=== PATIENT | female | born 1980 | race Caucasian/White ===

== ENCOUNTER 2016-07-15 01:36 | Inpatient (IN) | payer OTHER ==
[~2016-07-15] VITALS: Ht 160 cm; Wt 70.4 kg
[2016-07-15] VITALS (13 sets, daily range): BP systolic 84–131; BP diastolic 51–87
[~2016-07-15 01:36] MED LIST: MEDR150D3 IM
[2016-07-15] MEDS ORDERED: 0.9 % SODIUM CHLORIDE 10 ML DISP.SYRIN. IV PRN (01:45)
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
--- NOTE | 2016-07-15 01:58 | EKG ---
[address] [address] Test Date: 2016-07-15 Test Time: 01:58:49 Pat Name: ODILON GARZA Department: Room: Gender: F Structural Steel Fitter: SHANTANU : 1980 Requested By: WILLIAM CROW Order Number: [id number] Reading MD: Rome Champagne Measurements Intervals [place] Rate: 79 P: 51 AL: 128 QRS: 68 QRSD: 78 T: 36 QT: 374 QTc: 430 Interpretive Statements SINUS RHYTHM Electronically Signed On 07-17-2016 9:46:38 CDT by Rome Champagne
[2016-07-15] MEDS ORDERED: IV NORMAL SALINE 1,000ML 1,000 ML IV SCH (02:00)
[2016-07-15] MEDS ORDERED: LORazepam 2 MG/ML VIAL IV ONE (02:00)
[2016-07-15] MEDS ORDERED: HALOPERIDOL LACT 5 MG/ML VIAL. IVP ONE (02:00)
[2016-07-15 02:31] LABS: BASO % 0 % (0-3); EOS % 0 % (0-3); HEMATOCRIT 37.7 % (36.0-47.0); HEMOGLOBIN 12.9 g/dL (12.0-15.5); LYMPH # 2.2 x10^3/uL (1.0-4.8); LYMPH % 21 % (24-48); MEAN CORPUSCULAR HEMOGLOBIN 33 pg (25-35); MEAN CORPUSCULAR HGB CONC 34 g/dL (31-37); MEAN CORPUSCULAR VOLUME 96 fL (79-100); MONO # 0.5 x10^3/uL (0.0-1.1); MONO % 5 % (0-9); NEUT # 7.7 x10^3uL (1.8-7.7); NEUT % 74 % (31-73); PLATELET COUNT 180 x10^3/uL (140-400); RED BLOOD COUNT 3.94 x10^6/uL (3.50-5.40); RED CELL DISTRIBUTION WIDTH 14.1 % (11.5-14.5); WHITE BLOOD COUNT 10.4 x10^3/uL (4.0-11.0)
[2016-07-15 02:41] LABS: ALBUMIN 3.4 g/dL (3.4-5.0); CALCIUM 8.9 mg/dL (8.5-10.1); CREATININE 0.8 mg/dL (0.6-1.0); DIRECT BILIRUBIN 0.2 mg/dL (0.0-0.2); GFR 82.1; POTASSIUM 3.3 mmol/L (3.5-5.1); TOTAL BILIRUBIN 0.7 mg/dL (0.2-1.0); TOTAL PROTEIN 6.9 g/dL (6.4-8.2)
[2016-07-15 02:50] LABS: ACETAMIN < 2 mcg/mL (10-30); ETHANOL < 10 mg/dL (0-10); SALIC 2.1 mg/dL (2.8-20.0)
[2016-07-15 03:37] LABS: BILIRUBIN,URINE NEG (NEG); CLARITY,URINE CLEAR; COLOR,URINE YELLOW; GLUCOSE,URINE NEG (NEG)
[2016-07-15 03:38] LABS: BACTERIA,URINE FEW /HPF (0-FEW); NITRITE,URINE NEG (NEG); RBC,URINE OCC /HPF (0-2); SQUAMOUS EPITHELIAL CELL,UR MOD /LPF; UROBILINOGEN,URINE 0.2 mg/dL (0.2 mg/dL); WBC,URINE OCC /HPF (0-4)
[2016-07-15 03:39] LABS: BARBITURATES NEG (NEG); BENZODIAZEPINES POS (NEG); CANNABINOIDS NEG (NEG); COCAINE NEG (NEG); METHADONE NEG (NEG); OPIATES NEG (NEG); PHENCYCLIDINE NEG (NEG)
[2016-07-15 03:41] LABS: AMPHETAMINE/METHAMPHETAMINE NEG (NEG)
[2016-07-15] MEDS ORDERED: ONDANSETRON PF 4 MG/2 ML VIAL. IV PRN (03:45)
[2016-07-15] MEDS ORDERED: ACETAMINOPHEN 325 MG TABLET PO PRN (03:45)
--- NOTE | 2016-07-15 04:01 | ACF ---
Admission Criteria Forms MENTAL STATUS CHANGE Clinical Indications for Inpatient Care (Place 'X' for any and all applicable criteria): Ongoing inpatient care may be needed for 1 or more of the following(1)(2)(3)(5)( 6): [X]I. Suspected serious etiology (eg, medical disorder, TECHNICAL CONSULTANT event) of altered mental status [ ]II. Danger to self or others not manageable at lower level of care [ ]III. Grave disability (eg, inability to perform self care necessary at lower level of care) [ ]IV. Agitation or inappropriate behavior interfering with care for primary condition (eg, attempting to discontinue lines or drains prematurely, unable to cooperate with respiratory care) [ ]V. Delirium [A] [D][E] as described by 1 or more of the following(26): [ ]a) Delirium due to alcohol or sedative [F] withdrawal [ ]b) Delirium of uncertain etiology that has not responded to appropriate empiric treatment [ ]c) Delirium that prevents performance of a life-sustaining function (eg, feeding or hydrating oneself) [ ]. General contraindications and/or Inappropriate clinical situations for Observational Care in patients with Mental Status Change, when ANY ONE of the following is required: [ ]a) Prediction of prolongation of LOS based on ANY ONE of the following may be considered as a contraindication for observational care 2, 3, 4, 5, 6, 7, 8, 9, 10, 11 [ ]i) Age > 65 yrs. [ ]ii) Patient arriving by ambulance [ ]iii) Patient with high acuity [ ]iv) Patient requiring vital sign monitoring [ ]v) Patient on IV medication [ ]b) Systolic blood pressures greater than or equal to 180mmHg 3, 12 [ ]c) Patient with altered mental status including delirium and other alteration of consciousness, (3) [ ]d) Patient whose discharge disposition will be to a fci home or rehabilitation home should not be managed in Emergency Department Observation Unit. CMS rule requires 3 days hospital stay before such placement.3,13 [ ]e) Patient with failure to thrive due to broad array of etiologies 3,16,17 [ ]f) Inability to ambulate 3,14 Extended stay beyond goal length of stay for the primary condition may be needed until ALL of the following are present(3)(5): [ ]a) Underlying medical etiology of mental status change is absent, or has been established and adequately treated [ ]b) Danger to self or others is absent or manageable at lower level of care. [ ]c) Behavior crisis management, including physical or chemical restraints, is not required or available at lower level of car [ ]d) Substance or alcohol withdrawal is absent or manageable at lower level of care. [ ]e) Behavioral symptoms (eg, agitation, somnolence, inappropriate behavior) are absent, or are manageable at lower level of care. The original [facility] content created by [facility] has been revised. The portions of the content which have been revised are identified through the use of italic text or in bold, and [facility] has neither reviewed nor approved the modified material. All other unmodified content is copyright [facility]. Please see references footnoted in the original [facility] edition 2016 Admission Criteria Met?: Yes DIANNA TOWNSEND July 15, 2016 04:01
[2016-07-15] MEDS ORDERED: TRAZ-90 PO (04:26)
--- NOTE | 2016-07-15 07:43 | RAD ---
EXAM: Left hand, 3 views. HISTORY: Swelling. COMPARISON: None. FINDINGS: Frontal, lateral and oblique views of the left hand are obtained. There is no fracture, dislocation or subluxation. There is dorsal hand soft tissue swelling. IMPRESSION: 1. No acute osseous finding. 2. Dorsal hand soft tissue swelling.
[2016-07-15] MEDS ORDERED: CITA20TA5 PO (10:14)
[2016-07-15] MEDS ORDERED: CLON1TAB PO (10:14)
[2016-07-15] MEDS ORDERED: OXCA300T PO (10:15)
[2016-07-15] MEDS ORDERED: QUET25TA5 PO (10:16)
[2016-07-15] MEDS: QUEtiapine 25 MG TABLET. PO PRN ×2 (12:04→19:21)
[2016-07-15] MEDS ORDERED: ESCI20TA PO (12:08)
[2016-07-15] MEDS ORDERED: ESCITALOPRAM 20 MG TABLET. PO SCH (12:15)
[2016-07-15] MEDS: ESCITALOPRAM 20 MG TABLET. PO SCH (12:19)
[2016-07-15] MEDS: clonazePAM 1 MG TABLET PO PRN (13:36)
[2016-07-15] MEDS: NICOTINE 21MG PATCH. TD SCH (16:09)
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
--- NOTE | 2016-07-15 20:59 | PDOC ---
Exam Daryl Demential Exam: Daryl Note: Please also refer to the separate dictated note~for this date of service dictated separately.~Patient seen individually. Discussed the patient with Nursing staff reviewed the chart.~Reviewed interim history and current functioning. Reviewed vital signs,~Labs/ Radiology~and current medications noted below. Continue current treatment with the changes noted in the dictated addendum note Assessment: Vital Signs: Vital Signs Date Time Temp Pulse Resp B/P (MAP) Pulse Ox O2 Delivery O2 Flow Rate FiO2 07/15/16 19:21 98.8 98 18 118/73 (88) 97 Room Air I&O Intake and Output 07/15/16 07:00 Intake Total 1000 ml Balance 1000 ml Intake Oral 0 ml IV Total 1000 ml Labs: Laboratory Tests Test 07/15/16 02:15 07/15/16 03:00 07/15/16 03:05 White Blood Count 10.4 x10^3/uL (4.0-11.0) Red Blood Count 3.94 x10^6/uL (3.50-5.40) Hemoglobin 12.9 g/dL (12.0-15.5) Hematocrit 37.7 % (36.0-47.0) Mean Corpuscular Volume 96 fL (79-100) Mean Corpuscular Hemoglobin 33 pg (25-35) Mean Corpuscular Hemoglobin Concent 34 g/dL (31-37) Red Cell Distribution Width 14.1 % (11.5-14.5) Platelet Count 180 x10^3/uL (140-400) Neutrophils (%) (Auto) 74 % (31-73) H Lymphocytes (%) (Auto) 21 % (24-48) L Monocytes (%) (Auto) 5 % (0-9) Eosinophils (%) (Auto) 0 % (0-3) Basophils (%) (Auto) 0 % (0-3) Neutrophils # (Auto) 7.7 x10^3uL (1.8-7.7) Lymphocytes # (Auto) 2.2 x10^3/uL (1.0-4.8) Monocytes # (Auto) 0.5 x10^3/uL (0.0-1.1) Eosinophils # (Auto) 0.0 x10^3/uL (0.0-0.7) Basophils # (Auto) 0.0 x10^3/uL (0.0-0.2) Sodium Level 140 mmol/L (136-145) Potassium Level 3.3 mmol/L (3.5-5.1) L Chloride Level 105 mmol/L (98-107) Carbon Dioxide Level 25 mmol/L (21-32) Anion Gap 10 (6-14) Blood Urea Nitrogen 20 mg/dL (7-20) Creatinine 0.8 mg/dL (0.6-1.0) Estimated GFR (Cockcroft-Gault) 82.1 Glucose Level 93 mg/dL (70-99) Calcium Level 8.9 mg/dL (8.5-10.1) Total Bilirubin 0.7 mg/dL (0.2-1.0) Direct Bilirubin 0.2 mg/dL (0.0-0.2) Aspartate Amino Transferase (AST) 160 U/L (15-37) H Alanine Aminotransferase (ALT) 49 U/L (14-59) Alkaline Phosphatase 51 U/L (46-116) Total Protein 6.9 g/dL (6.4-8.2) Albumin 3.4 g/dL (3.4-5.0) Thyroid Stimulating Hormone (TSH) 2.056 uIU/mL (0.358-3.740) Salicylates Level 2.1 mg/dL (2.8-20.0) L Salicylate Last Dose Date 07/14/16 Salicylate Last Dose Time 0000 Acetaminophen Level < 2 mcg/mL (10-30) L Acetaminophen Last Dose Date 07/14/16 Acetaminophen Last Dose Time 0000 Ethyl Alcohol Level < 10 mg/dL (0-10) POC Urine HCG, Qualitative hcg negative (Negative) Urine Collection Type U cath Urine Color Yellow Urine Clarity Clear Urine pH 5.5 Urine Specific [place] >=1.030 Urine Protein 30 mg/dl (NEG-TRACE) Urine Glucose (UA) Neg mg/dL (NEG) Urine Ketones (Stick) 15 mg/dL (NEG) Urine Blood Trace (NEG) Urine Nitrite Neg (NEG) Urine Bilirubin Neg (NEG) Urine Urobilinogen Dipstick 0.2 mg/dL (0.2 mg/dL) Urine Leukocyte Esterase Neg (NEG) Urine RBC Occ /HPF (0-2) Urine WBC Occ /HPF (0-4) Urine Squamous Epithelial Cells Mod /LPF Urine Bacteria Few /HPF (0-FEW) Urine Mucus Mod /LPF Urine Opiates Screen Neg (NEG) Urine Methadone Screen Neg (NEG) Urine Barbiturates Neg (NEG) Urine Phencyclidine Screen Neg (NEG) Urine Amphetamine/Methamphetamine Neg (NEG) Urine Benzodiazepines Screen Pos (NEG) Urine Cocaine Screen Neg (NEG) Urine Cannabinoids Screen Neg (NEG) Urine Ethyl Alcohol Neg (NEG) Current Medications: Meds: Current Medications Sodium Chloride (Normal Saline Flush) 10 ml QSHIFT PRN IV AFTER MEDS AND BLOOD DRAWS Last administered on 07/15/16 02:09; Start 07/15/16 at 01:45 Sodium Chloride 1,000 ml @ 1,000 mls/hr Q1H IV Last administered on 07/15/16 02:00; Start 07/15/16 at 02:00; Stop 07/15/16 at 02:59; Status DC Lorazepam (Ativan) 2 mg 1X ONCE IV Last administered on 07/15/16 02:00; Start 07/15/16 at 02:00; Stop 07/15/16 at 02:01; Status DC Haloperidol Lactate (Haldol) 5 mg 1X ONCE IVP Last administered on 07/15/16 02:00; Start 07/15/16 at 02:00; Stop 07/15/16 at 02:01; Status DC Ondansetron HCl (Zofran) 4 mg PRN Q4HRS PRN IV NAUSEA/VOMITING; Start 07/15/16 at 03:45; Stop 07/16/16 at 03:44 Acetaminophen (Tylenol) 650 mg PRN Q4HRS PRN PO FEVER Last administered on 07/15 16:13; Start 07/15/16 at 03:45; Stop 07/16/16 at 03:44 Citalopram Hydrobromide (CeleXA) 20 mg DAILY PO ; Start 07/16/16 at 09:00; Stop 07/16/16 at 09:00; Status DC Clonazepam (KlonoPIN) 1 mg PRN BID PRN PO mood swings Last administered on 07/15 13:36; Start 07/15/16 at 09:45 Oxcarbazepine (Trileptal) 300 mg BID PO ; Start 07/15/16 at 21:00; Stop at 21:00; Status DC Quetiapine Fumarate (SEROquel) 25 mg PRN TID PRN PO mood swings Last administered on 07/15/16 19:21; Start 07/15/16 at 09:45 Trazodone HCl (Desyrel) 100 mg QHS PO ; Start 07/15/16 at 21:00 Escitalopram Oxalate (Lexapro) 20 mg DAILY PO Last administered on 07/15/16 12 :19; Start 07/15/16 at 12:30 Escitalopram Oxalate (Lexapro) 20 mg DAILY PO ; Start 07/15/16 at 12:15; Stop at 12:15; Status DC Oxcarbazepine (Trileptal) 300 mg BID PO Last administered on 07/15/16 19:21; Start 07/15/16 at 12:30 Nicotine (Nicoderm Cq 21mg) 1 patch DAILY TD Last administered on 07/15/16 16: 09; Start 07/15/16 at 16:15 Active Scripts Active Reported Escitalopram Oxalate 20 Mg Tablet 1 Tab PO DAILY Seroquel (Quetiapine Fumarate) 25 Mg Tablet 25 Mg PO PRN TID PRN Oxcarbazepine 300 Mg Tablet 1 Tab PO BID Klonopin (Clonazepam) 1 Mg Tablet 1 Tab PO BID PRN Trazodone Hcl 100 Mg Tablet 1 Tab PO QHS Depo-Provera (Medroxyprogesterone Acetate) 150 Mg/1 Ml Disp.syrin 1 Ml IM [id number] PATRICK CHAVEZ MD July 15, 2016 20:59
[2016-07-15] MEDS: traZODone 100 MG TABLET. PO SCH (21:00)
[2016-07-16 06:00] VITALS: BP 121/71
[2016-07-16 06:30] LABS: BASO % 0 % (0-3); EOS # 0.1 x10^3/uL (0.0-0.7); EOS % 2 % (0-3); HEMATOCRIT 37.3 % (36.0-47.0); HEMOGLOBIN 12.6 g/dL (12.0-15.5); LYMPH # 2.4 x10^3/uL (1.0-4.8); LYMPH % 51 % (24-48); MEAN CORPUSCULAR HEMOGLOBIN 33 pg (25-35); MEAN CORPUSCULAR HGB CONC 34 g/dL (31-37); MEAN CORPUSCULAR VOLUME 98 fL (79-100); MONO # 0.3 x10^3/uL (0.0-1.1); MONO % 7 % (0-9); NEUT # 1.9 x10^3uL (1.8-7.7); NEUT % 40 % (31-73); PLATELET COUNT 178 x10^3/uL (140-400); RED BLOOD COUNT 3.81 x10^6/uL (3.50-5.40); RED CELL DISTRIBUTION WIDTH 14.2 % (11.5-14.5); WHITE BLOOD COUNT 4.7 x10^3/uL (4.0-11.0)
[2016-07-16 06:50] LABS: ALBUMIN 2.8 g/dL (3.4-5.0); ALBUMIN/GLOBULIN RATIO 0.9 (1.0-1.7); CALCIUM 8.5 mg/dL (8.5-10.1); CREATININE 0.6 mg/dL (0.6-1.0); GFR 114.4; TOTAL BILIRUBIN 0.2 mg/dL (0.2-1.0)
[2016-07-16] MEDS: NICOTINE 21MG PATCH. TD SCH (07:48)
[2016-07-16 08:00] VITALS: BP 121/71
[2016-07-16] MEDS: ESCITALOPRAM 20 MG TABLET. PO SCH (08:40)
[2016-07-16] MEDS: clonazePAM 1 MG TABLET PO PRN ×2 (08:47→21:58)
[2016-07-16] MEDS ORDERED: CITALOPRAM 20 MG TABLET. PO SCH (09:00)
[2016-07-16 11:07] VITALS: BP 119/64
[2016-07-16] MEDS: QUEtiapine 25 MG TABLET. PO PRN (12:37)
--- NOTE | 2016-07-16 14:02 | PDOC ---
PROGRESS NOTES Diagnosis Problem Problems Medical Problems: (1) Altered mental status Status: Acute (2) Medication adverse effect Status: Acute Assessment Problems 1. Acute psychosis: Pt denies SI or HI at this time, though she admits that she feels that her meds "aren't right." We have asked [facility] for an evaluation since she is medically stable. I discussed her case w/ Dr. Wheatley, and he is agreeable to trying Haldol IM x 1 per pt request, as she states that she received it at [facility] and it really helped. I will d/c Seroquel so as not to double up on antipsychotics. 2. Bipolar disorder: Continue Trileptal. [facility] screening. 3. DVT proph: Pt frequently and totally ambulatory. Continue to encourage ambulation. Problems: Plan of Care: see other orders Subjective Pt states she "wound up in the ER because of a Fuch's state." She says this has happened before. She says that she became upset at some discord at home w/ her son's father, and broke some dishes in her kitchen. She denies a plan to hurt herself though she admit to fleeting thoughts. She says she could never do something like that because of her son. She denies any physical symptoms. She reports having been hospitalized at [facility] a couple months ago for a similar episode. Objective Vital Signs Date Time Temp Pulse Resp B/P (MAP) Pulse Ox O2 Delivery O2 Flow Rate FiO2 07/16/16 11:07 98.6 116 20 119/64 (82) 93 Room Air Intake and Output 07/16/16 07:00 Intake Total 2070 ml Output Total 250 ml Balance 1820 ml Intake Oral 2070 ml Output Urine Total 250 ml Extremities: No edema General: Alert, Oriented X3, Cooperative, No acute distress Lungs: Other (Normal respiratory effort.) Neck: No JVD Psych/Mental Status: Other (Labile, tangential thought, insight is occasionally sharp and then alternatively poor. ) Review of Relevant I have reviewed the following items khoi (where applicable) has been applied. Labs Laboratory Tests Test 07/15/16 02:15 07/15/16 03:00 07/15/16 03:05 07/15/16 05:30 White Blood Count 10.4 x10^3/uL (4.0-11.0) Red Blood Count 3.94 x10^6/uL (3.50-5.40) Hemoglobin 12.9 g/dL (12.0-15.5) Hematocrit 37.7 % (36.0-47.0) Mean Corpuscular Volume 96 fL (79-100) Mean Corpuscular Hemoglobin 33 pg (25-35) Mean Corpuscular Hemoglobin Concent 34 g/dL (31-37) Red Cell Distribution Width 14.1 % (11.5-14.5) Platelet Count 180 x10^3/uL (140-400) Neutrophils (%) (Auto) 74 % (31-73) Lymphocytes (%) (Auto) 21 % (24-48) Monocytes (%) (Auto) 5 % (0-9) Eosinophils (%) (Auto) 0 % (0-3) Basophils (%) (Auto) 0 % (0-3) Neutrophils # (Auto) 7.7 x10^3uL (1.8-7.7) Lymphocytes # (Auto) 2.2 x10^3/uL (1.0-4.8) Monocytes # (Auto) 0.5 x10^3/uL (0.0-1.1) Eosinophils # (Auto) 0.0 x10^3/uL (0.0-0.7) Basophils # (Auto) 0.0 x10^3/uL (0.0-0.2) Sodium Level 140 mmol/L (136-145) Potassium Level 3.3 mmol/L (3.5-5.1) Chloride Level 105 mmol/L (98-107) Carbon Dioxide Level 25 mmol/L (21-32) Anion Gap 10 (6-14) Blood Urea Nitrogen 20 mg/dL (7-20) Creatinine 0.8 mg/dL (0.6-1.0) Estimated GFR (Cockcroft-Gault) 82.1 Glucose Level 93 mg/dL (70-99) Calcium Level 8.9 mg/dL (8.5-10.1) Total Bilirubin 0.7 mg/dL (0.2-1.0) Direct Bilirubin 0.2 mg/dL (0.0-0.2) Aspartate Amino Transf (AST/SGOT) 160 U/L (15-37) Alanine Aminotransferase (ALT/SGPT) 49 U/L (14-59) Alkaline Phosphatase 51 U/L (46-116) Total Protein 6.9 g/dL (6.4-8.2) Albumin 3.4 g/dL (3.4-5.0) Thyroid Stimulating Hormone (TSH) 2.056 uIU/mL (0.358-3.740) Salicylates Level 2.1 mg/dL (2.8-20.0) Salicylate Last Dose Date 07/14/16 Salicylate Last Dose Time 0000 Acetaminophen Level < 2 mcg/mL (10-30) Acetaminophen Last Dose Date 07/14/16 Acetaminophen Last Dose Time 0000 Ethyl Alcohol Level < 10 mg/dL (0-10) Bedside Urine HCG, Qualitative hcg negative (Negative) Urine Collection Type U cath Urine Color Yellow Urine Clarity Clear Urine pH 5.5 Urine Specific [place] >=1.030 Urine Protein 30 mg/dl (NEG-TRACE) Urine Glucose (UA) Neg mg/dL (NEG) Urine Ketones (Stick) 15 mg/dL (NEG) Urine Blood Trace (NEG) Urine Nitrite Neg (NEG) Urine Bilirubin Neg (NEG) Urine Urobilinogen Dipstick 0.2 mg/dL (0.2 mg/dL) Urine Leukocyte Esterase Neg (NEG) Urine RBC Occ /HPF (0-2) Urine WBC Occ /HPF (0-4) Urine Squamous Epithelial Cells Mod /LPF Urine Bacteria Few /HPF (0-FEW) Urine Mucus Mod /LPF Urine Opiates Screen Neg (NEG) Urine Methadone Screen Neg (NEG) Urine Barbiturates Neg (NEG) Urine Phencyclidine Screen Neg (NEG) Urine Amphetamine/Methamphetamine Neg (NEG) Urine Benzodiazepines Screen Pos (NEG) Urine Cocaine Screen Neg (NEG) Urine Cannabinoids Screen Neg (NEG) Urine Ethyl Alcohol Neg (NEG) Nasal Screen MRSA (PCR) Negative (Negative) Test 07/16/16 06:17 White Blood Count 4.7 x10^3/uL (4.0-11.0) Red Blood Count 3.81 x10^6/uL (3.50-5.40) Hemoglobin 12.6 g/dL (12.0-15.5) Hematocrit 37.3 % (36.0-47.0) Mean Corpuscular Volume 98 fL (79-100) Mean Corpuscular Hemoglobin 33 pg (25-35) Mean Corpuscular Hemoglobin Concent 34 g/dL (31-37) Red Cell Distribution Width 14.2 % (11.5-14.5) Platelet Count 178 x10^3/uL (140-400) Neutrophils (%) (Auto) 40 % (31-73) Lymphocytes (%) (Auto) 51 % (24-48) Monocytes (%) (Auto) 7 % (0-9) Eosinophils (%) (Auto) 2 % (0-3) Basophils (%) (Auto) 0 % (0-3) Neutrophils # (Auto) 1.9 x10^3uL (1.8-7.7) Lymphocytes # (Auto) 2.4 x10^3/uL (1.0-4.8) Monocytes # (Auto) 0.3 x10^3/uL (0.0-1.1) Eosinophils # (Auto) 0.1 x10^3/uL (0.0-0.7) Basophils # (Auto) 0.0 x10^3/uL (0.0-0.2) Sodium Level 144 mmol/L (136-145) Potassium Level 4.0 mmol/L (3.5-5.1) Chloride Level 110 mmol/L (98-107) Carbon Dioxide Level 28 mmol/L (21-32) Anion Gap 6 (6-14) Blood Urea Nitrogen 13 mg/dL (7-20) Creatinine 0.6 mg/dL (0.6-1.0) Estimated GFR (Cockcroft-Gault) 114.4 BUN/Creatinine Ratio 22 (6-20) Glucose Level 93 mg/dL (70-99) Calcium Level 8.5 mg/dL (8.5-10.1) Total Bilirubin 0.2 mg/dL (0.2-1.0) Aspartate Amino Transf (AST/SGOT) 73 U/L (15-37) Alanine Aminotransferase (ALT/SGPT) 36 U/L (14-59) Alkaline Phosphatase 43 U/L (46-116) Total Protein 6.0 g/dL (6.4-8.2) Albumin 2.8 g/dL (3.4-5.0) Albumin/Globulin Ratio 0.9 (1.0-1.7) Medications Current Medications Sodium Chloride (Normal Saline Flush) 10 ml QSHIFT PRN IV AFTER MEDS AND BLOOD DRAWS Last administered on 07/15/16 02:09; Start 07/15/16 at 01:45 Sodium Chloride 1,000 ml @ 1,000 mls/hr Q1H IV Last administered on 07/15/16 02:00; Start 07/15/16 at 02:00; Stop 07/15/16 at 02:59; Status DC Lorazepam (Ativan) 2 mg 1X ONCE IV Last administered on 07/15/16 02:00; Start 07/15/16 at 02:00; Stop 07/15/16 at 02:01; Status DC Haloperidol Lactate (Haldol) 5 mg 1X ONCE IVP Last administered on 07/15/16 02:00; Start 07/15/16 at 02:00; Stop 07/15/16 at 02:01; Status DC Ondansetron HCl (Zofran) 4 mg PRN Q4HRS PRN IV NAUSEA/VOMITING; Start 07/15/16 at 03:45; Stop 07/16/16 at 03:44; Status DC Acetaminophen (Tylenol) 650 mg PRN Q4HRS PRN PO FEVER Last administered on 07/15 16:13; Start 07/15/16 at 03:45; Stop 07/16/16 at 03:44; Status DC Citalopram Hydrobromide (CeleXA) 20 mg DAILY PO ; Start 07/16/16 at 09:00; Stop 07/16/16 at 09:00; Status DC Clonazepam (KlonoPIN) 1 mg PRN BID PRN PO mood swings Last administered on 07/16 08:47; Start 07/15/16 at 09:45 Oxcarbazepine (Trileptal) 300 mg BID PO ; Start 07/15/16 at 21:00; Stop at 21:00; Status DC Quetiapine Fumarate (SEROquel) 25 mg PRN TID PRN PO mood swings Last administered on 07/16/16 12:37; Start 07/15/16 at 09:45 Trazodone HCl (Desyrel) 100 mg QHS PO ; Start 07/15/16 at 21:00 Escitalopram Oxalate (Lexapro) 20 mg DAILY PO Last administered on 5/29/17at 08 :40; Start 07/15/16 at 12:30 Escitalopram Oxalate (Lexapro) 20 mg DAILY PO ; Start 07/15/16 at 12:15; Stop at 12:15; Status DC Oxcarbazepine (Trileptal) 300 mg BID PO Last administered on 07/16/16 08:40; Start 07/15/16 at 12:30 Nicotine (Nicoderm Cq 21mg) 1 patch DAILY TD Last administered on 07/16/16 07: 48; Start 07/15/16 at 16:15 Active Scripts Active Reported Escitalopram Oxalate 20 Mg Tablet 1 Tab PO DAILY Seroquel (Quetiapine Fumarate) 25 Mg Tablet 25 Mg PO PRN TID PRN Oxcarbazepine 300 Mg Tablet 1 Tab PO BID Klonopin (Clonazepam) 1 Mg Tablet 1 Tab PO BID PRN Trazodone Hcl 100 Mg Tablet 1 Tab PO QHS Depo-Provera (Medroxyprogesterone Acetate) 150 Mg/1 Ml Disp.syrin 1 Ml IM [id number] Vitals/I & O Vital Sign - Last 24 Hours 07/15/16 07/15/16 07/15/16 07/15/16 14:00 19:21 20:00 21:51 Temp 98.8 Pulse 98 98 84 Resp 16 18 16 B/P (MAP) 115/73 (87) 118/73 (88) 94/51 (65) Pulse Ox 99 97 96 O2 Delivery Room Air Room Air Room Air Room Air 07/16/16 07/16/16 07/16/16 07/16/16 00:27 06:00 08:00 08:00 Temp 97.8 97.8 Pulse 89 89 Resp 16 18 B/P (MAP) 121/71 (88) 121/71 (88) Pulse Ox 100 100 O2 Delivery Room Air Room Air Room Air 07/16/16 11:07 Temp 98.6 Pulse 116 Resp 20 B/P (MAP) 119/64 (82) Pulse Ox 93 O2 Delivery Room Air Intake and Output 07/15/16 07/15/16 07/16/16 15:00 23:00 07:00 Intake Total 1200 ml 720 ml 150 ml Output Total 250 ml Balance 950 ml 720 ml 150 ml HAYDEN ARTIS MD July 16, 2016 14:02
[2016-07-16] MEDS ORDERED: HALOPERIDOL LACT 5 MG/ML VIAL. IM ONE (14:15)
[2016-07-16 18:17] VITALS: BP 102/65
[2016-07-16] MEDS ORDERED: MIRTAZAPINE 15 MG TABLET PO PRN (19:30)
[2016-07-16] MEDS ORDERED: HALOPERIDOL 1 MG TABLET PO PRN (19:30)
[2016-07-16 20:02] VITALS: BP 125/63
--- NOTE | 2016-07-16 20:52 | PDOC ---
Exam Daryl Demential Exam: Daryl Note: Please also refer to the separate dictated note~for this date of service dictated separately.~Patient seen individually. Discussed the patient with Nursing staff reviewed the chart.~Reviewed interim history and current functioning. Reviewed vital signs,~Labs/ Radiology~and current medications noted below. Continue current treatment with the changes noted in the dictated addendum note Assessment: Vital Signs: Vital Signs Date Time Temp Pulse Resp B/P (MAP) Pulse Ox O2 Delivery O2 Flow Rate FiO2 07/16/16 20:02 98.1 93 18 125/63 (83) 99 Room Air I&O Intake and Output 07/16/16 07:00 Intake Total 2070 ml Output Total 250 ml Balance 1820 ml Intake Oral 2070 ml Output Urine Total 250 ml Labs: Laboratory Tests Test 07/16/16 06:17 White Blood Count 4.7 x10^3/uL (4.0-11.0) # Red Blood Count 3.81 x10^6/uL (3.50-5.40) Hemoglobin 12.6 g/dL (12.0-15.5) Hematocrit 37.3 % (36.0-47.0) Mean Corpuscular Volume 98 fL (79-100) Mean Corpuscular Hemoglobin 33 pg (25-35) Mean Corpuscular Hemoglobin Concent 34 g/dL (31-37) Red Cell Distribution Width 14.2 % (11.5-14.5) Platelet Count 178 x10^3/uL (140-400) Neutrophils (%) (Auto) 40 % (31-73) Lymphocytes (%) (Auto) 51 % (24-48) H Monocytes (%) (Auto) 7 % (0-9) Eosinophils (%) (Auto) 2 % (0-3) Basophils (%) (Auto) 0 % (0-3) Neutrophils # (Auto) 1.9 x10^3uL (1.8-7.7) Lymphocytes # (Auto) 2.4 x10^3/uL (1.0-4.8) Monocytes # (Auto) 0.3 x10^3/uL (0.0-1.1) Eosinophils # (Auto) 0.1 x10^3/uL (0.0-0.7) Basophils # (Auto) 0.0 x10^3/uL (0.0-0.2) Sodium Level 144 mmol/L (136-145) Potassium Level 4.0 mmol/L (3.5-5.1) Chloride Level 110 mmol/L (98-107) H Carbon Dioxide Level 28 mmol/L (21-32) Anion Gap 6 (6-14) Blood Urea Nitrogen 13 mg/dL (7-20) Creatinine 0.6 mg/dL (0.6-1.0) Estimated GFR (Cockcroft-Gault) 114.4 BUN/Creatinine Ratio 22 (6-20) H Glucose Level 93 mg/dL (70-99) Calcium Level 8.5 mg/dL (8.5-10.1) Total Bilirubin 0.2 mg/dL (0.2-1.0) Aspartate Amino Transferase (AST) 73 U/L (15-37) H Alanine Aminotransferase (ALT) 36 U/L (14-59) Alkaline Phosphatase 43 U/L (46-116) L Total Protein 6.0 g/dL (6.4-8.2) L Albumin 2.8 g/dL (3.4-5.0) L Albumin/Globulin Ratio 0.9 (1.0-1.7) L Current Medications: Meds: Current Medications Sodium Chloride (Normal Saline Flush) 10 ml QSHIFT PRN IV AFTER MEDS AND BLOOD DRAWS Last administered on 07/15/16 02:09; Start 07/15/16 at 01:45 Sodium Chloride 1,000 ml @ 1,000 mls/hr Q1H IV Last administered on 07/15/16 02:00; Start 07/15/16 at 02:00; Stop 07/15/16 at 02:59; Status DC Lorazepam (Ativan) 2 mg 1X ONCE IV Last administered on 07/15/16 02:00; Start 07/15/16 at 02:00; Stop 07/15/16 at 02:01; Status DC Haloperidol Lactate (Haldol) 5 mg 1X ONCE IVP Last administered on 07/15/16 02:00; Start 07/15/16 at 02:00; Stop 07/15/16 at 02:01; Status DC Ondansetron HCl (Zofran) 4 mg PRN Q4HRS PRN IV NAUSEA/VOMITING; Start 07/15/16 at 03:45; Stop 07/16/16 at 03:44; Status DC Acetaminophen (Tylenol) 650 mg PRN Q4HRS PRN PO FEVER Last administered on 07/15 16:13; Start 07/15/16 at 03:45; Stop 07/16/16 at 03:44; Status DC Citalopram Hydrobromide (CeleXA) 20 mg DAILY PO ; Start 07/16/16 at 09:00; Stop 07/16/16 at 09:00; Status DC Clonazepam (KlonoPIN) 1 mg PRN BID PRN PO mood swings Last administered on 07/16 08:47; Start 07/15/16 at 09:45 Oxcarbazepine (Trileptal) 300 mg BID PO ; Start 07/15/16 at 21:00; Stop at 21:00; Status DC Quetiapine Fumarate (SEROquel) 25 mg PRN TID PRN PO mood swings Last administered on 07/16/16 12:37; Start 07/15/16 at 09:45; Stop 07/16/16 at 13:55 ; Status DC Trazodone HCl (Desyrel) 100 mg QHS PO ; Start 07/15/16 at 21:00 Escitalopram Oxalate (Lexapro) 20 mg DAILY PO Last administered on 07/16/16 08 :40; Start 07/15/16 at 12:30 Escitalopram Oxalate (Lexapro) 20 mg DAILY PO ; Start 07/15/16 at 12:15; Stop at 12:15; Status DC Oxcarbazepine (Trileptal) 300 mg BID PO Last administered on 07/16/16 08:40; Start 07/15/16 at 12:30 Nicotine (Nicoderm Cq 21mg) 1 patch DAILY TD Last administered on 07/16/16 07: 48; Start 07/15/16 at 16:15 Haloperidol Lactate (Haldol) 5 mg 1X ONCE IM Last administered on 07/16/16 15 :00; Start 07/16/16 at 14:15; Stop 07/16/16 at 14:16; Status DC Haloperidol (Haldol) 5 mg DAILY PO ; Start 07/17/16 at 09:00 Mirtazapine (Remeron) 15 mg PRN QHS PRN PO AGITATION; Start 07/16/16 at 19:30 Haloperidol (Haldol) 2.5 mg PRN Q6HRS PRN PO AGITATION; Start 07/16/16 at 19:30 Active Scripts Active Reported Escitalopram Oxalate 20 Mg Tablet 1 Tab PO DAILY Seroquel (Quetiapine Fumarate) 25 Mg Tablet 25 Mg PO PRN TID PRN Oxcarbazepine 300 Mg Tablet 1 Tab PO BID Klonopin (Clonazepam) 1 Mg Tablet 1 Tab PO BID PRN Trazodone Hcl 100 Mg Tablet 1 Tab PO QHS Depo-Provera (Medroxyprogesterone Acetate) 150 Mg/1 Ml Disp.syrin 1 Ml IM [id number] PATRICK CHAVEZ MD July 16, 2016 20:52
[2016-07-16] MEDS ORDERED: HALO5TAB PO (21:30)
--- NOTE | 2016-07-16 21:32 | DISCH ---
DISCHARGE INSTRUCTIONS-DC Condition on Discharge Condition on Discharge: Stable Problems: Activity after Discharge Activity Instructions for Disc: No restrictions Diet after Discharge Diet after Discharge: Regular Contacting the DR. after DC Call your doctor for: If your condition worsens Follow-Up Follow up with: [facility] (immediately after discharge) HAYDEN ARTIS MD July 16, 2016 21:32
--- NOTE | 2016-07-16 21:35 | PDOC3 ---
Discharge Summary Discharge Summary Date of Admission Date of Admission: July 15, 2016 at 03:32 Admitting Diagnosis Altered mental status Bipolar d/o Date of Discharge: July 17, 2016 Discharge Diagnosis Bipolar disorder w/ psychotic features Laboratory Findings Laboratory Tests Test 07/15/16 02:15 07/15/16 03:00 07/15/16 03:05 07/15/16 05:30 White Blood Count 10.4 x10^3/uL (4.0-11.0) Red Blood Count 3.94 x10^6/uL (3.50-5.40) Hemoglobin 12.9 g/dL (12.0-15.5) Hematocrit 37.7 % (36.0-47.0) Mean Corpuscular Volume 96 fL (79-100) Mean Corpuscular Hemoglobin 33 pg (25-35) Mean Corpuscular Hemoglobin Concent 34 g/dL (31-37) Red Cell Distribution Width 14.1 % (11.5-14.5) Platelet Count 180 x10^3/uL (140-400) Neutrophils (%) (Auto) 74 % (31-73) Lymphocytes (%) (Auto) 21 % (24-48) Monocytes (%) (Auto) 5 % (0-9) Eosinophils (%) (Auto) 0 % (0-3) Basophils (%) (Auto) 0 % (0-3) Neutrophils # (Auto) 7.7 x10^3uL (1.8-7.7) Lymphocytes # (Auto) 2.2 x10^3/uL (1.0-4.8) Monocytes # (Auto) 0.5 x10^3/uL (0.0-1.1) Eosinophils # (Auto) 0.0 x10^3/uL (0.0-0.7) Basophils # (Auto) 0.0 x10^3/uL (0.0-0.2) Sodium Level 140 mmol/L (136-145) Potassium Level 3.3 mmol/L (3.5-5.1) Chloride Level 105 mmol/L (98-107) Carbon Dioxide Level 25 mmol/L (21-32) Anion Gap 10 (6-14) Blood Urea Nitrogen 20 mg/dL (7-20) Creatinine 0.8 mg/dL (0.6-1.0) Estimated GFR (Cockcroft-Gault) 82.1 Glucose Level 93 mg/dL (70-99) Calcium Level 8.9 mg/dL (8.5-10.1) Total Bilirubin 0.7 mg/dL (0.2-1.0) Direct Bilirubin 0.2 mg/dL (0.0-0.2) Aspartate Amino Transf (AST/SGOT) 160 U/L (15-37) Alanine Aminotransferase (ALT/SGPT) 49 U/L (14-59) Alkaline Phosphatase 51 U/L (46-116) Total Protein 6.9 g/dL (6.4-8.2) Albumin 3.4 g/dL (3.4-5.0) Thyroid Stimulating Hormone (TSH) 2.056 uIU/mL (0.358-3.740) Salicylates Level 2.1 mg/dL (2.8-20.0) Salicylate Last Dose Date 07/14/16 Salicylate Last Dose Time 0000 Acetaminophen Level < 2 mcg/mL (10-30) Acetaminophen Last Dose Date 07/14/16 Acetaminophen Last Dose Time 0000 Ethyl Alcohol Level < 10 mg/dL (0-10) Bedside Urine HCG, Qualitative hcg negative (Negative) Urine Collection Type U cath Urine Color Yellow Urine Clarity Clear Urine pH 5.5 Urine Specific [place] >=1.030 Urine Protein 30 mg/dl (NEG-TRACE) Urine Glucose (UA) Neg mg/dL (NEG) Urine Ketones (Stick) 15 mg/dL (NEG) Urine Blood Trace (NEG) Urine Nitrite Neg (NEG) Urine Bilirubin Neg (NEG) Urine Urobilinogen Dipstick 0.2 mg/dL (0.2 mg/dL) Urine Leukocyte Esterase Neg (NEG) Urine RBC Occ /HPF (0-2) Urine WBC Occ /HPF (0-4) Urine Squamous Epithelial Cells Mod /LPF Urine Bacteria Few /HPF (0-FEW) Urine Mucus Mod /LPF Urine Opiates Screen Neg (NEG) Urine Methadone Screen Neg (NEG) Urine Barbiturates Neg (NEG) Urine Phencyclidine Screen Neg (NEG) Urine Amphetamine/Methamphetamine Neg (NEG) Urine Benzodiazepines Screen Pos (NEG) Urine Cocaine Screen Neg (NEG) Urine Cannabinoids Screen Neg (NEG) Urine Ethyl Alcohol Neg (NEG) Nasal Screen MRSA (PCR) Negative (Negative) Test 07/16/16 06:17 White Blood Count 4.7 x10^3/uL (4.0-11.0) Red Blood Count 3.81 x10^6/uL (3.50-5.40) Hemoglobin 12.6 g/dL (12.0-15.5) Hematocrit 37.3 % (36.0-47.0) Mean Corpuscular Volume 98 fL (79-100) Mean Corpuscular Hemoglobin 33 pg (25-35) Mean Corpuscular Hemoglobin Concent 34 g/dL (31-37) Red Cell Distribution Width 14.2 % (11.5-14.5) Platelet Count 178 x10^3/uL (140-400) Neutrophils (%) (Auto) 40 % (31-73) Lymphocytes (%) (Auto) 51 % (24-48) Monocytes (%) (Auto) 7 % (0-9) Eosinophils (%) (Auto) 2 % (0-3) Basophils (%) (Auto) 0 % (0-3) Neutrophils # (Auto) 1.9 x10^3uL (1.8-7.7) Lymphocytes # (Auto) 2.4 x10^3/uL (1.0-4.8) Monocytes # (Auto) 0.3 x10^3/uL (0.0-1.1) Eosinophils # (Auto) 0.1 x10^3/uL (0.0-0.7) Basophils # (Auto) 0.0 x10^3/uL (0.0-0.2) Sodium Level 144 mmol/L (136-145) Potassium Level 4.0 mmol/L (3.5-5.1) Chloride Level 110 mmol/L (98-107) Carbon Dioxide Level 28 mmol/L (21-32) Anion Gap 6 (6-14) Blood Urea Nitrogen 13 mg/dL (7-20) Creatinine 0.6 mg/dL (0.6-1.0) Estimated GFR (Cockcroft-Gault) 114.4 BUN/Creatinine Ratio 22 (6-20) Glucose Level 93 mg/dL (70-99) Calcium Level 8.5 mg/dL (8.5-10.1) Total Bilirubin 0.2 mg/dL (0.2-1.0) Aspartate Amino Transf (AST/SGOT) 73 U/L (15-37) Alanine Aminotransferase (ALT/SGPT) 36 U/L (14-59) Alkaline Phosphatase 43 U/L (46-116) Total Protein 6.0 g/dL (6.4-8.2) Albumin 2.8 g/dL (3.4-5.0) Albumin/Globulin Ratio 0.9 (1.0-1.7) Hospital Course Pt was admitted due to altered mental status. She was seen by psychiatry and screened by the [facility], who recommended pt be discharged first thing in the morning on 07/17 and sent directly to the [facility] for intake. Pt was started on Haldol in hospital as she says she felt much better on it at [facility], and her Seroquel was discontinued. Treatment See above. Condition at Discharge: Stable Home Meds Reported Medications Escitalopram Oxalate (ESCITALOPRAM OXALATE) 20 Mg Tablet, 1 TAB PO DAILY, #30 TAB 5 Refills 07/15/16 Quetiapine Fumarate (SEROQUEL) 25 Mg Tablet, 25 MG PO PRN TID Y for mood swings , TAB 07/15/16 Oxcarbazepine (OXCARBAZEPINE) 300 Mg Tablet, 1 TAB PO BID, #60 TAB 1 Refill 07/15/16 Clonazepam (KLONOPIN) 1 Mg Tablet, 1 TAB PO BID Y for mood swings, #60 TAB 07/15/16 Trazodone Hcl (TRAZODONE HCL) 100 Mg Tablet, 1 TAB PO QHS, #30 TAB 1 Refill 07/15/16 Medroxyprogesterone Acetate (DEPO-PROVERA) 150 Mg/1 Ml Disp.syrin, 1 ML IM [id number], #1 SYR 4 Refills 09/24/13 Discontinued Reported Medications Citalopram Hydrobromide (CITALOPRAM HBR) 20 Mg Tablet, 20 MG PO DAILY, TAB 07/15/16 Inpatient Meds Current Medications Sodium Chloride (Normal Saline Flush) 10 ml QSHIFT PRN IV AFTER MEDS AND BLOOD DRAWS Last administered on 07/15/16 02:09; Start 07/15/16 at 01:45 Sodium Chloride 1,000 ml @ 1,000 mls/hr Q1H IV Last administered on 07/15/16 02:00; Start 07/15/16 at 02:00; Stop 07/15/16 at 02:59; Status DC Lorazepam (Ativan) 2 mg 1X ONCE IV Last administered on 07/15/16 02:00; Start 07/15/16 at 02:00; Stop 07/15/16 at 02:01; Status DC Haloperidol Lactate (Haldol) 5 mg 1X ONCE IVP Last administered on 07/15/16 02:00; Start 07/15/16 at 02:00; Stop 07/15/16 at 02:01; Status DC Ondansetron HCl (Zofran) 4 mg PRN Q4HRS PRN IV NAUSEA/VOMITING; Start 07/15/16 at 03:45; Stop 07/16/16 at 03:44; Status DC Acetaminophen (Tylenol) 650 mg PRN Q4HRS PRN PO FEVER Last administered on 07/15 16:13; Start 07/15/16 at 03:45; Stop 07/16/16 at 03:44; Status DC Citalopram Hydrobromide (CeleXA) 20 mg DAILY PO ; Start 07/16/16 at 09:00; Stop 07/16/16 at 09:00; Status DC Clonazepam (KlonoPIN) 1 mg PRN BID PRN PO mood swings Last administered on 07/16 08:47; Start 07/15/16 at 09:45 Oxcarbazepine (Trileptal) 300 mg BID PO ; Start 07/15/16 at 21:00; Stop at 21:00; Status DC Quetiapine Fumarate (SEROquel) 25 mg PRN TID PRN PO mood swings Last administered on 07/16/16 12:37; Start 07/15/16 at 09:45; Stop 07/16/16 at 13:55 ; Status DC Trazodone HCl (Desyrel) 100 mg QHS PO ; Start 07/15/16 at 21:00 Escitalopram Oxalate (Lexapro) 20 mg DAILY PO Last administered on 07/16/16 08 :40; Start 07/15/16 at 12:30 Escitalopram Oxalate (Lexapro) 20 mg DAILY PO ; Start 07/15/16 at 12:15; Stop at 12:15; Status DC Oxcarbazepine (Trileptal) 300 mg BID PO Last administered on 07/16/16 08:40; Start 07/15/16 at 12:30 Nicotine (Nicoderm Cq 21mg) 1 patch DAILY TD Last administered on 07/16/16 07: 48; Start 07/15/16 at 16:15 Haloperidol Lactate (Haldol) 5 mg 1X ONCE IM Last administered on 07/16/16 15 :00; Start 07/16/16 at 14:15; Stop 07/16/16 at 14:16; Status DC Haloperidol (Haldol) 5 mg DAILY PO ; Start 07/17/16 at 09:00 Mirtazapine (Remeron) 15 mg PRN QHS PRN PO AGITATION; Start 07/16/16 at 19:30 Haloperidol (Haldol) 2.5 mg PRN Q6HRS PRN PO AGITATION; Start 07/16/16 at 19:30 Active Scripts Active Reported Escitalopram Oxalate 20 Mg Tablet 1 Tab PO DAILY Seroquel (Quetiapine Fumarate) 25 Mg Tablet 25 Mg PO PRN TID PRN Oxcarbazepine 300 Mg Tablet 1 Tab PO BID Klonopin (Clonazepam) 1 Mg Tablet 1 Tab PO BID PRN Trazodone Hcl 100 Mg Tablet 1 Tab PO QHS Depo-Provera (Medroxyprogesterone Acetate) 150 Mg/1 Ml Disp.syrin 1 Ml IM [id number] Consulting Speciality: Psychology Follow-up Plan Pt to be discharged in the morning and sent directly to [facility]. HAYDEN ARTIS MD July 16, 2016 21:35
[2016-07-16] MEDS: traZODone 100 MG TABLET. PO SCH (21:53)
[2016-07-16] MEDS ORDERED: HALOPERIDOL 5 MG TABLET PO PRN (23:30)
--- NOTE | 2016-07-17 02:32 | PN ---
DATE: 07/16/2016 PSYCHIATRIC PROGRESS NOTE SUBJECTIVE: The patient was seen on rounds the evening of 07/16/2016. Discussed with nursing staff, reviewed the chart, also discussed the patient with Dr. Srinivasan who wondered about starting the patient on Haldol IM/p.o. since she had done well on this in the past. Additionally, the patient was screened by Muna from the [facility], but did not meet inpatient psychiatric criteria and the plan is for her to go to the crisis clinic at the [facility] tomorrow morning. In the interim, the patient remains quite psychotic. Denies active suicidal ideation. MENTAL STATUS EXAM: Alert, oriented to place and situation. Speech coherent, rapid at times. Abstraction fair, computation impaired. Attention span short. No active suicidal or homicidal ideation. She appears paranoid, talking about something being on her face that she wants to pull her skin apart and then talks about her significant other getting her eyeglasses to the hospital and she has not yet done it and expressed a lot of anger about this. She is quite disorganized overall, again no active suicidal or homicidal ideation. LABORATORY DATA: Reviewed. IMPRESSION: Schizophrenia, chronic, undifferentiated type with acute exacerbation, psychotic disorder, unspecified; probable schizoaffective disorder, bipolar type, mixed with psychotic features. PLAN: Restart Haldol IM 5 mg x 1 and then 5 mg p.o. and 2.5 mg q 6 hours p.r.n., maximum 10 mg in 24 hours. We stopped the Seroquel, start trazodone for insomnia, and Remeron 15 mg at bedtime. The patient reportedly has been drinking about 2 pots of coffee in a day and I have advised her to reduce this down to a maximum of 1 or 2 cups a day. She agrees to do this. We will also have a CT head done in the morning before she leaves. PATRICK CHAVEZ MD DR: ESTER/maury JOB#: [id number] / [id number]
--- NOTE | 2016-07-17 02:36 | CONS ---
DATE OF CONSULTATION: 07/15/2016 This is a late entry for 07/15/2016. IDENTIFYING DATA: The patient is a 36-year-old female seen in ICU bed 5, [facility] for a psychiatric consult requested by Dr. Velasco on account of mental status changes, hallucinations within the context of her history of schizophrenia versus schizoaffective disorder, bipolar type, depression and anxiety. The patient seen individually, discussed with nursing staff, reviewed the chart. CHIEF COMPLAINT: "I thought about suicide 1 month ago. I loaded a shotgun. I went to the hospital. I felt something like that again. No, not suicidal." HISTORY OF PRESENT ILLNESS: Reportedly, the patient arrived at the Emergency Room at [facility] with increasing agitation and hallucinations after her significant other called 911. The patient states she believes she was in a dazed state. "I remember the counters were covered and I swept everything on the floor. I don't think my meds are working." The patient reportedly lives at home with a significant other and a 4-year-old son. Apparently, he called EMS after the patient had taken some Klonopin and was increasingly confused and according to the significant other was having hallucinations. The patient presented to the ER, reports were rambling, she was very labile, angry, but easy to console. She had thought blocking. No active suicidal or homicidal ideations were noted. It was very difficult to gather a detailed history from the patient, but it appears she was hospitalized perhaps at [facility] in [place] about a month previously for suicidal ideation and was treated on IM Haldol and did better with this and she is wanting this restarted. She admits to history of mood swings and has been in outpatient treatment at the [facility], but none of those records are available. PAST PSYCHIATRIC HISTORY: As above. MEDICAL HISTORY: Reasonably healthy. She is a full code. DRUG ALLERGIES: Negative. PSYCHOTROPICS: At the time of admission, trazodone 100 mg at bedtime, Seroquel 25 mg t.i.d. p.r.n., Trileptal 300 mg b.i.d., Lexapro 20 mg a day, Klonopin 1 mg b.i.d. p.r.n., Celexa was used in the past. FAMILY HISTORY: Noncontributory. SOCIAL HISTORY: The patient lives with her significant other and 4-year-old son. Details are unclear, but she eludes to the significant other, trying to take custody of her son versus the state services. Urine drug screen is negative. MENTAL STATUS EXAM: The patient was seen individually evening of 07/15/2016. She is oriented to herself and situation. Speech coherent, rapid at times with some loose associations and tangentiality evident. She appeared paranoid, suspicious, was having difficulty giving a coherent history at times. Attention span short. Language function intact. No active suicidal or homicidal ideation. Intellect average. Insight fair. Judgment intact to standard questioning. LABORATORY DATA: Reviewed. Urine drug screen is negative. We will have a CT head done as well. OBJECTIVE: VITAL SIGNS: Temperature 98.8, pulse 98, BP 118/73. REVIEW OF SYSTEMS: No CV, , pulmonary, eye system symptoms on review. IMPRESSION: Schizoaffective disorder, bipolar type, mixed with psychotic features; schizophrenia, chronic, undifferentiated with acute exacerbation; anxiety disorder, unspecified. Rest diagnoses as above. PLAN: I will reassess the patient on 07/16/2016 and if she remains psychotic, we may restart Haldol, which she believes she responded to positively in the past. We will have [facility] screened her for possible inpatient psychiatric stabilization when she is medically stable. Dr. Velasco, thank you for the opportunity to participate in your patient's care. We will follow with you. PATRICK CHAVEZ MD DR: ESTER/maury JOB#: [id number] / [id number]
[2016-07-17 06:09] VITALS: BP 108/68
[2016-07-17] MEDS: ESCITALOPRAM 20 MG TABLET. PO SCH (08:07)
[2016-07-17] MEDS: NICOTINE 21MG PATCH. TD SCH (08:09)
[2016-07-17] MEDS ORDERED: HALOPERIDOL 5 MG TABLET PO SCH (09:00)
--- NOTE | 2016-07-17 09:05 | RAD ---
CT head without contrast History: Altered mental status. Comparison: CT head 08/29/2012. Procedure: Axial images are obtained of the head from the skull base through the vertex without IV contrast. One or more of the following individualized dose reduction techniques were utilized for the study: Automated exposure control Adjustment of mA and/or kV according to patient's size Use of iterative reconstruction technique. Findings: The ventricles and sulci are normal for the patient's age. No mass-effect, intracranial mass, midline shift, hemorrhage or obvious acute infarction is identified. Basilar cisterns are patent. Bone windows demonstrate no significant calvarial abnormality. The visualized paranasal sinuses appear clear. Impression: No acute intracranial process.
== END 2016-07-17 09:30 | disposition home or self-care (01) | DRG 92 ==
LOC: ER 01:36 → ICU 03:32
PROVIDERS: ADMIT Internal Medicine; ATTEND Internal Medicine
DX: G92 Toxic encephalopathy (principal); F31.64 Bipolar disorder, current episode mixed, severe, with psychotic features; F12.90 Cannabis use, unspecified, uncomplicated; R45.1 Restlessness and agitation; F41.9 Anxiety disorder, unspecified; F17.210 Nicotine dependence, cigarettes, uncomplicated; G47.00 Insomnia, unspecified; Z79.899 Other long term (current) drug therapy
CPT/HCPCS: 36415; 70450; 73130; 80048; 80053; 80076; 81001; 81025; 84443; 85027; 87641; 93005; 96361; 96374; 96375; 99406; G0480; G0481; J1630; J2060; 99285-25; J7030

== ENCOUNTER 2016-09-07 12:59 | Emergency (ER) | payer OTHER ==
[~2016-09-07] VITALS: Ht 160 cm; Wt 70.5 kg
[~2016-09-07 12:59] MED LIST changes: +CITA20TA5 PO; +CLON1TAB PO; +ESCITALOPRAM OX20 MG PO; +HALO5TAB PO; +OXCA300T PO; +QUET25TA5 PO; +TRAZ-90 PO
[2016-09-07] MEDS ORDERED: IV NORMAL SALINE 1,000ML 1,000 ML IV ONE ×2 (13:45→15:10)
[2016-09-07 14:19] LABS: BASO % 0 % (0-3); EOS % 1 % (0-3); HEMATOCRIT 40.2 % (36.0-47.0); HEMOGLOBIN 13.5 g/dL (12.0-15.5); LYMPH # 1.4 x10^3/uL (1.0-4.8); LYMPH % 16 % (24-48); MEAN CORPUSCULAR HEMOGLOBIN 33 pg (25-35); MEAN CORPUSCULAR HGB CONC 34 g/dL (31-37); MEAN CORPUSCULAR VOLUME 99 fL (79-100); MONO # 0.6 x10^3/uL (0.0-1.1); MONO % 7 % (0-9); NEUT # 6.9 x10^3uL (1.8-7.7); NEUT % 76 % (31-73); PLATELET COUNT 221 x10^3/uL (140-400); RED BLOOD COUNT 4.05 x10^6/uL (3.50-5.40); RED CELL DISTRIBUTION WIDTH 14.5 % (11.5-14.5); WHITE BLOOD COUNT 9.1 x10^3/uL (4.0-11.0)
[2016-09-07 14:31] LABS: SALIC 1.9 mg/dL (2.8-20.0)
[2016-09-07 14:32] LABS: ACETAMIN < 2.0 mcg/mL (10-30)
[2016-09-07 14:33] LABS: ETHANOL < 10 mg/dL (0-10)
--- NOTE | 2016-09-07 14:34 | RAD ---
Thalia Levin Chest x-ray 1328 INDICATION: Altered mental status COMPARISON: None. FINDINGS: Single view of chest obtained. No focal airspace consolidation. Mediastinal contour is unremarkable. No gross osseous destructive lesion. IMPRESSION: No focal airspace consolidation or edema. MTDD
[2016-09-07 14:37] LABS: CALCIUM 8.8 mg/dL (8.5-10.1); CREATININE 0.7 mg/dL (0.6-1.0); GFR 95.8; POTASSIUM 4.1 mmol/L (3.5-5.1)
--- NOTE | 2016-09-07 14:38 | EKG ---
[address] [address] Test Date: 2016-09-07 Test Time: 13:33:07 Pat Name: ODILON GARZA Department: Room: Gender: F Advertising Assistant Manager: : 1980 Requested By: ROSE QUICK Order Number: [id number] Reading MD: Marty Stoll Measurements Intervals [place] Rate: 83 P: 67 NM: 138 QRS: 67 QRSD: 82 T: 35 QT: 422 QTc: 496 Interpretive Statements SINUS RHYTHM PROLONGED QT Electronically Signed On 09-16-2016 14:50:29 CDT by Marty Stoll
[2016-09-07 14:42] LABS: AMPHETAMINE/METHAMPHETAMINE NEG (NEG); BARBITURATES NEG (NEG); BENZODIAZEPINES POS (NEG); CANNABINOIDS NEG (NEG); COCAINE NEG (NEG); METHADONE NEG (NEG); OPIATES NEG (NEG); PHENCYCLIDINE NEG (NEG)
--- NOTE | 2016-09-07 14:42 | RAD ---
Ollie Vásquez CT cervical spine. Date of the examination 09/07/2016. Indication overdose. Head injury. Change in mental status. The head and cervical spine were evaluated. Images of the cervical spine were reformatted in the coronal and sagittal planes. There is compared to an examination 07/17/2016. CT head: Findings The calvarium appears unremarkable. The visualized paranasal sinuses appear normal there is no subdural or epidural hematoma. There is no mass or midline shift. No hemorrhage is seen. No acute intracranial finding is apparent. CT cervical spine: Findings. The lung apices are clear. There is significant soft tissue finding in the neck is not seen. Review of axial images unremarkable. No fracture or significant bony finding is seen. The reformatted images also appear unremarkable. IMPRESSION: No acute or significant finding seen in the cervical spine. No acute finding seen in the head PQRS Compliance Statement: One or more of the following individualized dose reduction techniques were utilized for this examination: 1. Automated exposure control 2. Adjustment of the mA and/or kV according to patient size 3. Use of iterative reconstruction technique MTDD
[2016-09-07 14:47] LABS: BILIRUBIN,URINE NEG (NEG); CLARITY,URINE HAZY; COLOR,URINE YELLOW; GLUCOSE,URINE NEG (NEG); NITRITE,URINE NEG (NEG); RBC,URINE RARE /HPF (0-2); UROBILINOGEN,URINE 0.2 mg/dL (0.2 mg/dL)
[2016-09-07 14:48] LABS: BACTERIA,URINE 0 /HPF (0-FEW); SQUAMOUS EPITHELIAL CELL,UR FEW /LPF; WBC,URINE 0 /HPF (0-4)
[2016-09-07 15:22] LABS: ALBUMIN 3.4 g/dL (3.4-5.0); TOTAL BILIRUBIN 0.7 mg/dL (0.2-1.0); TOTAL PROTEIN 7.1 g/dL (6.4-8.2)
[2016-09-07 15:25] LABS: DIRECT BILIRUBIN 0.1 mg/dL (0.0-0.2)
[2016-09-07 16:31] LABS: BGAS PH 7.37 (7.35-7.45)
--- NOTE | 2016-09-07 17:26 | EKG ---
[address] [address] Test Date: 2016-09-07 Test Time: 16:40:01 Pat Name: ODILON GARZA Department: Room: Gender: F Take Out Waiter/Waitress: : 1980 Requested By: ROSE QUICK Order Number: [id number] Reading MD: Marty Stoll Measurements Intervals [place] Rate: 105 P: 6 CT: 132 QRS: 77 QRSD: 70 T: 42 QT: 354 QTc: 472 Interpretive Statements SINUS TACHYCARDIA NON SPECIFIC T ABNORMALITY Electronically Signed On 09-16-2016 14:52:33 CDT by Marty Stoll
[2016-09-07 17:39] VITALS: BP 113/72
--- NOTE | 2016-09-07 18:33 | ED.ADGEN ---
Past History Past Medical History: Other Additional Past Medical Histor: depression and schizophrenia anxiety disorder Past Surgical History: Other Smoking: Cigarettes, Less than 1pk/day Alcohol Use: Occasionally Drug Use: Marijuana Adult General HPI HPI Patient is a 36-year-old woman, history of depression, anxiety, schizophrenia, previous suicidal ideation, who presents to the emergency department via EMS after being found unresponsive at home. Patient's family states they found her around 11:00 AM, at that time she was noted to have an open bottle of Seroquel next to her and was lying in bed. They state the patient was responsive only to tactile stimuli. EMS was contacted, and patient did arrive in the emergency department at 1257, at that time EMS had administered IV fluids, and patient remains responsive to tactile stimuli, will moan and state "Stop!" He attempts to rouse her, would not respond any other way, does have spontaneous eye opening , and will track, is maintaining airway, and did become aggressive in route to the emergency Department per EMS. Oxygen saturation is 97% room air, respiratory rate is 12-16, blood pressures are 1 teens over 70s, heart rates are in the 80s. Patient noted to be hypothermic, rectal temperature of 92.1. Patient placed on bear hugger and warmed fluids initiated in the ED. Medics did bring all medications for the patient, but the only pill bottle that was noted by the patient was Seroquel. It is believed the patient may have taken 60 tablets of 100 mg Seroquel based on numbers and tablets found. Exact time of ingestion is unknown, it is unclear the last time the patient was seen normal, and family is not present in the emergency department. Review of Systems Review of Systems Unable to obtain secondary to clinical condition. Current Medications Current Medications Current Medications Medications (Trade) Dose Ordered Sig/Luann Start Time Stop Time Status Last Admin Dose Admin Sodium Chloride 1,000 ml @ 125 mls/hr 1X ONCE 09/07/16 15:10 09/07/16 18:05 DC 09/07/16 15:04 125 MLS/HR Allergies Allergies Allergies Coded Allergies Type Severity Reaction Last Updated Verified No Known Drug Allergies 09/24/13 No Physical Exam Physical Exam Constitutional: Well developed, well nourished, no acute distress, non-toxic appearance. [] HENT: Normocephalic, atraumatic, bilateral external ears normal, oropharynx moist, no oral exudates, nose normal. [] Eyes: PERRLA, EOMI, conjunctiva normal, no discharge. [] Neck: Normal range of motion, no tenderness, supple, no stridor. [] Cardiovascular:Heart rate regular rhythm, no murmur, S1, S2, no rubs or gallops. [] Lungs & Thorax: Bilateral breath sounds clear to auscultation, no wheezing, rhonchi, rales. No chest wall crepitus or tenderness. [] Abdomen: Bowel sounds normal, soft, no tenderness, no rebound, rigidity, no guarding, no masses, no pulsatile masses. [] Skin: Warm, dry, no erythema, no rash. [] Back: No tenderness, no CVA tenderness. [] Extremities: No tenderness, no cyanosis, no clubbing, ROM intact, no edema. Negative Homans sign. [] Neurologic: Patient will open eyes to tactile stimuli, will track with eyes, moaning, occasionally state "stop", is moving all extremities, GCS of 10 on arrival Psychologic: Psychiatric examination limited secondary to neurologic presentation Current Patient Data Vital Signs Vital Signs Date Time Temp Pulse Resp B/P (MAP) Pulse Ox O2 Delivery O2 Flow Rate FiO2 09/07/16 17:39 97.0 102 13 96 09/07/16 12:59 Room Air Lab Results Laboratory Tests Test 09/07/16 14:02 09/07/16 14:05 09/07/16 16:23 White Blood Count 9.1 x10^3/uL (4.0-11.0) Red Blood Count 4.05 x10^6/uL (3.50-5.40) Hemoglobin 13.5 g/dL (12.0-15.5) Hematocrit 40.2 % (36.0-47.0) Mean Corpuscular Volume 99 fL (79-100) Mean Corpuscular Hemoglobin 33 pg (25-35) Mean Corpuscular Hemoglobin Concent 34 g/dL (31-37) Red Cell Distribution Width 14.5 % (11.5-14.5) Platelet Count 221 x10^3/uL (140-400) Neutrophils (%) (Auto) 76 % (31-73) H Lymphocytes (%) (Auto) 16 % (24-48) L Monocytes (%) (Auto) 7 % (0-9) Eosinophils (%) (Auto) 1 % (0-3) Basophils (%) (Auto) 0 % (0-3) Neutrophils # (Auto) 6.9 x10^3uL (1.8-7.7) Lymphocytes # (Auto) 1.4 x10^3/uL (1.0-4.8) Monocytes # (Auto) 0.6 x10^3/uL (0.0-1.1) Eosinophils # (Auto) 0.0 x10^3/uL (0.0-0.7) Basophils # (Auto) 0.0 x10^3/uL (0.0-0.2) Sodium Level 140 mmol/L (136-145) Potassium Level 4.1 mmol/L (3.5-5.1) Chloride Level 105 mmol/L (98-107) Carbon Dioxide Level 29 mmol/L (21-32) Anion Gap 6 (6-14) Blood Urea Nitrogen 6 mg/dL (7-20) L Creatinine 0.7 mg/dL (0.6-1.0) Estimated GFR (Cockcroft-Gault) 95.8 Glucose Level 98 mg/dL (70-99) Lactic Acid Level 1.8 mmol/L (0.4-2.0) Calcium Level 8.8 mg/dL (8.5-10.1) Total Bilirubin 0.7 mg/dL (0.2-1.0) Direct Bilirubin 0.1 mg/dL (0.0-0.2) Aspartate Amino Transferase (AST) 27 U/L (15-37) Alanine Aminotransferase (ALT) 29 U/L (14-59) Alkaline Phosphatase 49 U/L (46-116) Troponin I Quantitative < 0.017 ng/mL (0-0.055) QU-Zfb-A-Type Natriuretic Peptide 34 pg/mL (0-124) Total Protein 7.1 g/dL (6.4-8.2) Albumin 3.4 g/dL (3.4-5.0) Salicylates Level 1.9 mg/dL (2.8-20.0) L Salicylate Last Dose Date 09/07/16 Salicylate Last Dose Time 1100 Acetaminophen Level < 2.0 mcg/mL (10-30) L Acetaminophen Last Dose Date Unknown Acetaminophen Last Dose Time Unknown Ethyl Alcohol Level < 10 mg/dL (0-10) Urine Collection Type U cath Urine Color Yellow Urine Clarity Hazy Urine pH 6.0 Urine Specific Mchen[place] >=1.030 Urine Protein Neg (NEG-TRACE) Urine Glucose (UA) Neg mg/dL (NEG) Urine Ketones (Stick) Trace mg/dL (NEG) Urine Blood Neg (NEG) Urine Nitrite Neg (NEG) Urine Bilirubin Neg (NEG) Urine Urobilinogen Dipstick 0.2 mg/dL (0.2 mg/dL) Urine Leukocyte Esterase Neg (NEG) Urine RBC Rare /HPF (0-2) Urine WBC 0 /HPF (0-4) Urine Squamous Epithelial Cells Few /LPF Urine Bacteria 0 /HPF (0-FEW) Urine Opiates Screen Neg (NEG) Urine Methadone Screen Neg (NEG) Urine Barbiturates Neg (NEG) Urine Phencyclidine Screen Neg (NEG) Urine Amphetamine/Methamphetamine Neg (NEG) Urine Benzodiazepines Screen Pos (NEG) Urine Cocaine Screen Neg (NEG) Urine Cannabinoids Screen Neg (NEG) Urine Ethyl Alcohol Neg (NEG) Blood pH 7.37 (7.35-7.45) Blood Gas PCO2 43 mmHg (35-45) Blood Gas PO2 64 mmHg (80-100) L Blood Gas HCO3 25 mmol/L (22-26) Arterial Bld O2 Saturation (Calc) 93 % (92-99) FiO2 21 % EKG EKG EC: Sinus rhythm, heart rate 83 bpm, upright axis, QTC of 496, CT 138, QRS of 82, no ST elevations or depressions, no evidence of acute ST abnormalities. As interpreted by me. EC: Sinus tachycardia, heart rate 105 bpm, upright axis, QTC of 472, CT 132, QRS of 70, no ST elevations or depressions, as interpreted by me.] Radiology/Procedures Radiology/Procedures [][address] [address] IMAGING REPORT Signed PATIENT: ODILON GARZA ACCOUNT: [id number] : 1980 LOCATION: ER AGE: 36 SEX: F EXAM STATUS: REG ER ORD. PHYSICIAN: ROSE QUICK DO REASON: AMS/OD PROCEDURE: CT HEAD AND CERVICAL SPINE ADY Vásquez CT cervical spine. Date of the examination 09/07/2016. Indication overdose. Head injury. Change in mental status. The head and cervical spine were evaluated. Images of the cervical spine were reformatted in the coronal and sagittal planes. There is compared to an examination 07/17/2016. CT head: Findings The calvarium appears unremarkable. The visualized paranasal sinuses appear normal there is no subdural or epidural hematoma. There is no mass or midline shift. No hemorrhage is seen. No acute intracranial finding is apparent. CT cervical spine: Findings. The lung apices are clear. There is significant soft tissue finding in the neck is not seen. Review of axial images unremarkable. No fracture or significant bony finding is seen. The reformatted images also appear unremarkable. IMPRESSION: No acute or significant finding seen in the cervical spine. No acute finding seen in the head PQRS Compliance Statement: One or more of the following individualized dose reduction techniques were utilized for this examination: 1. Automated exposure control 2. Adjustment of the mA and/or kV according to patient size 3. Use of iterative reconstruction technique DICTATED AND SIGNED BY: OLIVA LAYNE MD DATE: 09/07/16 [id number] CC: ROSE QUICK DO; TOMASZ RADER MD ~ Course & Med Decision Making Course & Med Decision Making Pertinent Labs and Imaging studies reviewed. (See chart for details) No history or evidence of trauma on examination, imaging of head and neck obtained which not reveal evidence of acute findings, chest x-ray was also unremarkable. Patient maintaining airway without issue, oxygen saturation in the mid 90s on room air, aroused to tactile, and then some verbal stimuli, moving all extremities, but still is not speaking or following commands. ABG obtained which not reveal any evidence of acutely concerning findings, laboratory studies revealed lactic and electrolytes within normal limits, no evidence of infection, UDS was positive for Xanax. Poison control was contacted and all medications were reviewed, examination is not consistent with a Seroquel overdose, this patient is experiencing hypothermia, with blood pressures, heart rate within normal limits. IV fluids infusing as stated, patient's temperature improved with bear hugger, patient greater than 96 with bear hugger was turned off, continued to improve, final temperature in the ED was 97.7. Findings as above were discussed with Dr. Child of internal medicine , will transfer patient to the ICU at [facility], to obtain neurology consultation, possible MRI, and additional studies for further evaluation as her mentation has not improved at this time, and there is not evidence of a singular toxidrome that would require intervention. Patient transferred to [facility] emergency department without issue. Final Impression Final Impression [] Problems: Dragon Disclaimer Dragon Disclaimer This electronic medical record was generated, in whole or in part, using a voice recognition dictation system. Departure: Impression: Primary Impression: Altered mental status Disposition: XFER SHT-TRM HOSP Condition: STABLE ROSE QUICK DO Sep 07, 2016 18:33
== END 2016-09-07 17:50 | disposition short-term general hospital (02) ==
LOC: ER 12:59
DX: R41.82 Altered mental status, unspecified (principal); F20.9 Schizophrenia, unspecified; F41.9 Anxiety disorder, unspecified; F17.210 Nicotine dependence, cigarettes, uncomplicated; F12.10 Cannabis abuse, uncomplicated
CPT/HCPCS: 36415; 51702; 70450; 71010; 72125; 80048; 80076; 80307; 81001; 82803; 83605; 83880; 84484; 85027; 93005; 96360; 96361; 99285; G0480; 80305; G0481; G0479; J7030